=== PATIENT | female | born 1940 | race Caucasian/White ===

== ENCOUNTER 2018-10-26 10:05 | Outpatient (CLI) | payer MEDICARE ==
[~2018-10-26 10:05] MED LIST: AMLO-150 PO; ENAL20TA PO; FLUO20CA8 PO; FOLI-17 PO; HYDR25TA6 PO; TRAZ50TA66 PO
== END 2018-10-26 23:59 | disposition home or self-care (01) ==
LOC: RAD 10:05
PROVIDERS: ATTEND Family Medicine
DX: J44.9 Chronic obstructive pulmonary disease, unspecified (principal)
CPT/HCPCS: 71046